=== PATIENT | male | born 1970 | race Two or more races ===

== ENCOUNTER 2019-04-28 22:37 | Emergency (ER) | payer MEDICAID ==
[~2019-04-28] VITALS: Ht 157.5 cm; Wt 77.0 kg
[2019-04-29] MEDS ORDERED: KETOROLAC 60MG/2ML VIAL IM ONE (01:15)
[2019-04-29] MEDS ORDERED: KETOROLAC 60MG/2ML VIAL IM NR (02:41)
[2019-04-29] MEDS: MAGNESIUM/ALUMINUM HYDROXIDE/SIMETHICONE 30ML UDC PO NR ×2 (03:19→03:48)
[2019-04-29] MEDS: VISCOUS LIDOCAINE 2% 15 ML UDC PO NR ×2 (03:19→03:47)
[2019-04-29 04:40] VITALS: BP 108/69
== END 2019-04-29 04:47 | disposition home or self-care (01) ==
LOC: ER 22:37
DX: R07.89 Other chest pain (principal)
CPT/HCPCS: 36415; 71046; 84484; 93005; 96372; 99284; J1885